=== PATIENT | female | born 1995 | race Caucasian/White ===

== ENCOUNTER 2019-05-10 04:04 | Inpatient (IN) | payer MEDICAID ==
[2019-05-10] MEDS ORDERED: CARBOPROST 250 MCG INJ IM ×2 (04:30→11:30)
[2019-05-10] MEDS ORDERED: OXYTOCIN 30 UNITS/LR 500 ML IV ×2 (04:30→11:30)
[2019-05-10] MEDS ORDERED: MISOPROSTOL 200 MCG TAB PR ×2 (04:30→11:30)
[2019-05-10] MEDS ORDERED: METHYLERGONOVINE 0.2 MG INJ IM ×2 (04:30→11:30)
[2019-05-10] MEDS ORDERED: BUTORPHANOL 2 MG INJ IV (04:30)
[2019-05-10] MEDS ORDERED: LIDOCAINE 1% (MPF) 30 ML INJ INJ (04:30)
[2019-05-10] MEDS: LACTATED RINGER'S 1,000 ML IV ×2 (04:50→06:15)
[2019-05-10 04:52] LABS: ADD MAN DIFF? NO
[2019-05-10] MEDS: AMPICILLIN 2 GM/NS (PMX) 100 ML IV (04:53)
[2019-05-10 04:59] LABS: BASOPHIL # 0.1 10^3/ul (0.0-0.1); BASOPHILS % 0.4 % (0.0-2.0); EOSINOPHILS # 0.2 10^3/ul (0.0-0.5); EOSINOPHILS % 0.9 % (0.0-7.0); HEMATOCRIT 39.4 % (37.0-47.0); HEMOGLOBIN 13.2 g/dl (12.0-16.0); LYMPHOCYTES # 2.1 10^3/ul (0.8-2.9); LYMPHOCYTES % 13.4 % (15.0-51.0); MEAN CORPUSCULAR HEMOGLOBIN 27.9 pg (29.0-33.0); MEAN CORPUSCULAR HGB CONC 33.5 g/dl (32.0-37.0); MEAN CORPUSCULAR VOLUME 83.3 fl (82.0-101.0); MEAN PLATELET VOLUME 12.5 fl (7.4-10.4); MONOCYTE # 0.9 10^3/ul (0.3-0.9); MONOCYTES % 5.7 % (0.0-11.0); NEUTROPHIL # 12.3 10^3/ul (1.6-7.5); PLATELET COUNT 173 10^3/UL (140-415); RED BLOOD COUNT 4.73 10^6/ul (4.20-5.40); RED CELL DISTRIBUTION WIDTH 13.9 % (11.5-14.5)
[2019-05-10 04:59] LABS: WHITE BLOOD COUNT 15.8 10^3/ul (4.8-10.8)
[2019-05-10 05:13] LABS: INR 0.88; PT RATIO 0.9
[2019-05-10 05:14] LABS: PARTIAL THROMBOPLASTIN TIME 26.2 Sec (23.0-35.0)
[2019-05-10] MEDS ORDERED: MINERAL OIL 30ML CUP PO (05:30)
[2019-05-10 06:11] LABS: HEPATITIS B SURFACE ANTIGEN NEGATIVE (NEGATIVE)
[2019-05-10] MEDS ORDERED: NALOXONE (0.4 MG/ML) INJ IV (07:00)
[2019-05-10] MEDS ORDERED: FENTAnyl 2MCG/ML-ROPIV 0.2% 100 ML BAG EPI (07:00)
[2019-05-10] MEDS ORDERED: AMPICILLIN 1 GM/NS (PMX) 50 ML IV (08:30)
[2019-05-10] MEDS: OXYTOCIN 30 UNITS/LR 500 ML IV ×3 (08:39→13:42)
[2019-05-10 09:08] LABS: AMPHETAMINE/METHAMPHETAMINE Negative (NEGATIVE); BARBITURATES Negative (NEGATIVE); BENZODIAZEPINES Negative (NEGATIVE); CANNABINOIDS Negative (NEGATIVE); COCAINE Negative (NEGATIVE); OPIATES Negative (NEGATIVE)
[2019-05-10] MEDS ORDERED: NACL 0.9% 3 ML SYG IV (11:30)
[2019-05-10] MEDS: IBUPROFEN 600 MG TAB PO ×3 (12:00→23:50)
[2019-05-10] MEDS: MINERAL OIL LIGHT 10 ML VIAL TOP (13:33)
[2019-05-10] MEDS: LANOLIN HPA 1 PKT TOP (13:39)
[2019-05-10] MEDS: BENZOCAINE 20% 56 ML SPRAY TOP (13:39)
[2019-05-10] MEDS: WITCH HAZEL/GLYCERIN PAD PR (13:39)
[2019-05-10 21:46] LABS: RAPID PLASMA REAGIN NONREACTIVE (NR)
[2019-05-11] MEDS: IBUPROFEN 600 MG TAB PO ×4 (05:46→23:32)
[2019-05-11 06:57] LABS: ADD MAN DIFF? NO
[2019-05-11 07:01] LABS: WHITE BLOOD COUNT 13.6 10^3/ul (4.8-10.8)
[2019-05-11 07:01] LABS: BASOPHIL # 0.1 10^3/ul (0.0-0.1); BASOPHILS % 0.5 % (0.0-2.0); EOSINOPHILS # 0.1 10^3/ul (0.0-0.5); EOSINOPHILS % 0.9 % (0.0-7.0); HEMATOCRIT 37.1 % (37.0-47.0); HEMOGLOBIN 12.5 g/dl (12.0-16.0); LYMPHOCYTES % 21.7 % (15.0-51.0); MEAN CORPUSCULAR HEMOGLOBIN 27.8 pg (29.0-33.0); MEAN CORPUSCULAR HGB CONC 33.7 g/dl (32.0-37.0); MEAN CORPUSCULAR VOLUME 82.4 fl (82.0-101.0); MEAN PLATELET VOLUME 11.9 fl (7.4-10.4); MONOCYTE # 0.9 10^3/ul (0.3-0.9); MONOCYTES % 6.9 % (0.0-11.0); NEUTROPHIL # 9.4 10^3/ul (1.6-7.5); NEUTROPHILS % 68.9 % (39.0-77.0); PLATELET COUNT 166 10^3/UL (140-415); RED CELL DISTRIBUTION WIDTH 13.6 % (11.5-14.5)
[2019-05-12] MEDS: IBUPROFEN 600 MG TAB PO ×2 (05:27→11:18)
[2019-05-12] MEDS: DIPHTH/TET/ACEL PERTUSS (ADULT) 0.5 ML VIAL IM* (09:00)
[2019-05-13 13:47] LABS: RUBELLA ANTIBODY - IGM <20.00 AU/mL
[2019-05-13 20:52] LABS: RUBELLA ANTIBODY - IGG 1.74 index
== END 2019-05-12 12:45 | disposition home or self-care (01) | DRG 807 ==
LOC: OBT 04:04 → L-D 04:06 → OBT 04:20 → L-D 04:20 → PP1 11:06
PROVIDERS: Obstetrics & Gynecology
PROC: 10E0XZZ Delivery of Products of Conception, External Approach (ICD-10-PCS; principal; 2019-05-10)
PROC: 0UQGXZZ Repair Vagina, External Approach (ICD-10-PCS; 2019-05-10)
DX: O71.4 Obstetric high vaginal laceration alone (principal); Z37.0 Single live birth; Z3A.39 39 weeks gestation of pregnancy
CPT/HCPCS: 62322; 80307; 85025; 85610; 85730; 86592; 86762; 86850; 86900; 86901; 87340